=== PATIENT | male | born 1970 | race Caucasian/White ===

== ENCOUNTER 2019-03-15 12:30 | Day surgery (SDC) | payer OTHER ==
[2019-03-15] MEDS ORDERED: Depo-Medrol 40 MG/ML IM ONE (12:31)
[2019-03-15] MEDS ORDERED: Xylocaine-Mpf 2% 5 Ml Vial IJ ONE (12:31)
[2019-03-15] MEDS ORDERED: DIPRIVAN 200 MG/20 ML IV ONE (13:48)
[2019-03-15] MEDS ORDERED: Ketamine HCl 50 MG/ML ONE (13:48)
--- NOTE | 2019-03-15 14:49 | XRAY ---
Indication: Bilateral L4-S1 MBB. Intraoperative fluoroscopy was provided for 10 seconds. Single digital spot image submitted for interpretation demonstrates posterior needle tips projecting over the expected course of the left and right L4-S1 nerve roots. Correlate with intraoperative findings/report.
--- NOTE | 2019-03-15 14:51 | XRAY ---
10 seconds fluoroscopy time in surgery for bilateral L4-S1 MBB.
[2019-03-15] MEDS ORDERED: Lactated Ringers 1,000 ML IV ONE (15:19)
== END 2019-03-15 14:17 | disposition home or self-care (01) ==
LOC: SDC-PAIN 12:30
PROVIDERS: ATTEND Psychiatry & Neurology Pain Medicine
DX: M47.816 Spondylosis without myelopathy or radiculopathy, lumbar region (principal); I10 Essential (primary) hypertension; F41.8 Other specified anxiety disorders; M19.90 Unspecified osteoarthritis, unspecified site; Z79.899 Other long term (current) drug therapy
CPT/HCPCS: 64493; 64494; 72020; 77002; J1030; J2704

== ENCOUNTER 2019-04-26 07:58 | Day surgery (SDC) | payer OTHER ==
[2019-04-26] MEDS ORDERED: Marcaine 0.5% SDV 10 ML IJ ONE (07:59)
[2019-04-26] MEDS ORDERED: Depo-Medrol 40 MG/ML IM ONE (07:59)
[2019-04-26] MEDS ORDERED: Ketamine HCl 50 MG/ML ONE (09:26)
[2019-04-26] MEDS ORDERED: DIPRIVAN 200 MG/20 ML IV ONE (09:26)
--- NOTE | 2019-04-26 10:52 | XRAY ---
Indication: Bilateral L4-S1 MBB. Intraoperative fluoroscopy was provided for 9 seconds. Single digital spot image submitted for interpretation demonstrates posterior needle tips projecting over the expected course of the left and right L4-S1 nerve roots. Correlate with intraoperative findings/report.
--- NOTE | 2019-04-26 12:07 | XRAY ---
9 seconds of fluoroscopy was used in surgery for a bilateral L4-L5 and L5-S1 MBB.
[2019-04-26] MEDS ORDERED: Lactated Ringers 1,000 ML IV ONE (15:54)
== END 2019-04-26 10:00 | disposition home or self-care (01) ==
LOC: SDC-PAIN 07:58
PROVIDERS: ATTEND Psychiatry & Neurology Pain Medicine
DX: M47.816 Spondylosis without myelopathy or radiculopathy, lumbar region (principal); I10 Essential (primary) hypertension; F41.8 Other specified anxiety disorders
CPT/HCPCS: 64493; 64494; 72020; 77002; J1030; J2704

== ENCOUNTER 2019-05-31 10:42 | Day surgery (SDC) | payer OTHER ==
[2019-05-31] MEDS ORDERED: Xylocaine 1% Vial 30 ML PF IJ ONE (10:43)
[2019-05-31] MEDS ORDERED: Depo-Medrol 40 MG/ML IM ONE (10:43)
[2019-05-31] MEDS ORDERED: Marcaine 0.5% SDV 10 ML IJ ONE (10:43)
[2019-05-31] MEDS ORDERED: DIPRIVAN 200 MG/20 ML IV ONE (11:26)
[2019-05-31] MEDS ORDERED: Ketamine HCl 50 MG/ML ONE (11:26)
--- NOTE | 2019-05-31 12:49 | XRAY ---
Indication: Left L4-S1 RFA. Intraoperative fluoroscopy was provided for 15 seconds. 3 digital spot images submitted for interpretation demonstrates posterior needle tips projecting over the expected course of the left L4-S1 nerve roots. Correlate with intraoperative findings/report.
--- NOTE | 2019-05-31 13:14 | XRAY ---
15 seconds fluoroscopy time in surgery for left L4-S1 RFA.
[2019-05-31] MEDS ORDERED: Lactated Ringers 1,000 ML IV ONE (14:52)
== END 2019-05-31 11:55 | disposition home or self-care (01) ==
LOC: SDC 10:42 → SDC-PAIN 10:42
PROVIDERS: ATTEND Psychiatry & Neurology Pain Medicine
DX: M47.816 Spondylosis without myelopathy or radiculopathy, lumbar region (principal); M47.817 Spondylosis without myelopathy or radiculopathy, lumbosacral region; I10 Essential (primary) hypertension; F41.8 Other specified anxiety disorders; Z79.899 Other long term (current) drug therapy
CPT/HCPCS: 64635; 64636; 72100; 77002; J1030; J2001; J2704

== ENCOUNTER 2019-06-14 11:56 | Day surgery (SDC) | payer OTHER ==
[2019-06-14] MEDS ORDERED: Depo-Medrol 40 MG/ML IM ONE (11:57)
[2019-06-14] MEDS ORDERED: Marcaine 0.5% SDV 10 ML IJ ONE (11:57)
[2019-06-14] MEDS ORDERED: Xylocaine 1% Vial 30 ML PF IJ ONE (11:57)
[2019-06-14] MEDS ORDERED: Ketamine HCl 50 MG/ML ONE (13:06)
[2019-06-14] MEDS ORDERED: DIPRIVAN 200 MG/20 ML IV ONE (13:06)
[2019-06-14] MEDS ORDERED: Lactated Ringers 1,000 ML IV ONE (13:39)
--- NOTE | 2019-06-14 14:19 | XRAY ---
Indication: Right L4-S1 RFA. Intraoperative fluoroscopy was provided for 18 seconds. 3 digital spot images submitted for interpretation demonstrates posterior needle tips projecting over the expected course of the right L4-S1 nerve roots. Correlate with intraoperative findings/report.
--- NOTE | 2019-06-14 14:33 | XRAY ---
18 seconds fluoroscopy tie in surgery for right L4-S1 RFA.
== END 2019-06-14 13:37 | disposition home or self-care (01) ==
LOC: SDC-PAIN 11:56
PROVIDERS: ATTEND Psychiatry & Neurology Pain Medicine
DX: M47.816 Spondylosis without myelopathy or radiculopathy, lumbar region (principal); M47.817 Spondylosis without myelopathy or radiculopathy, lumbosacral region; I10 Essential (primary) hypertension; F41.8 Other specified anxiety disorders; Z79.899 Other long term (current) drug therapy
CPT/HCPCS: 64635; 64636; 72100; 77002; J1030; J2001; J2704